=== PATIENT | male | born 1945 | race Caucasian/White ===

== ENCOUNTER 2019-03-24 07:17 | Emergency (ER) | payer OTHER ==
[~2019-03-24] VITALS: Ht 172.7 cm; Wt 83.0 kg
[2019-03-24] MEDS ORDERED: SYNTHROID100 MCG PO (07:50)
[2019-03-24] MEDS ORDERED: ZESTRIL20 MG PO (07:50)
[2019-03-24] MEDS ORDERED: TAMS0.4C PO (07:51)
[2019-03-24] MEDS ORDERED: FORTAMET500 MG PO (07:51)
[2019-03-24] MEDS ORDERED: CHILDREN'S ASPI81 MG PO (07:52)
[2019-03-24] MEDS ORDERED: SIMVASTATIN10 MG PO (07:52)
== END 2019-03-24 12:15 | disposition home or self-care (01) ==
LOC: ER 07:17
DX: M54.5 Low back pain (principal); M25.552 Pain in left hip; M25.562 Pain in left knee; M25.561 Pain in right knee; B34.9 Viral infection, unspecified